=== PATIENT | female | born 1975 | race Two or more races ===

== ENCOUNTER 2018-06-15 08:40 | Outpatient (CLI) | payer OTHER | END 2018-06-15 08:46 | disposition home or self-care (01) | LOC: RX STUDY 08:40 | DX: R93.3 Abnormal findings on diagnostic imaging of other parts of digestive tract (principal); D64.89 Other specified anemias; D50.0 Iron deficiency anemia secondary to blood loss (chronic); D12.5 Benign neoplasm of sigmoid colon; K29.40 Chronic atrophic gastritis without bleeding; K44.9 Diaphragmatic hernia without obstruction or gangrene; K64.0 First degree hemorrhoids; Z86.010 Personal history of colon polyps ==